=== PATIENT | male | born 1960 | race Caucasian/White ===

== ENCOUNTER → 2019-03-03 | Day surgery (SDC) | payer OTHER ==
[~2019-03-03] MED LIST: ALBU2.5V8 IH; AMLO10TA8 PO; ATOR40TA59 PO; CLOP75TA PO; DULO30CA2 PO; IV RINGERS,LACTATED 1000ML 1,000 ML IV SCH; LEVO100C PO; LIDOCAINE 2% PF 5 ML VIAL. ONE; MIRT30TA PO; MONT10TA49 PO; OMEP40CA45 PO; PARO40TA61 PO; PROPOFOL 20 ML IV ONE; TAMS0.4C97 PO; ZIPR40CA2 PO
[2019-03-03 08:44] VITALS: BP 141/63
--- NOTE | 2019-03-03 10:14 | CONS ---
DATE OF CONSULTATION: 03/03/2019 REASON FOR CONSULTATION: Dysphagia and GERD. HISTORY OF PRESENT ILLNESS: A 58-year-old male with past medical history significant for hypertension, hyperlipidemia, hypothyroidism, and asthma, is seen with recurrent problems with swallowing as meats and solids mainly stick in the substernal location. Risk factors for reflux are positive for caffeine, but negative for alcohol and/or nicotine. He has been on Prilosec 40 mg daily with modest improvement in his symptoms. There has been no change in weight. Prior endoscopy in [place], [place], was unrevealing for malignancy at that time approximately 3 years ago. With continued issues, he requests additional evaluation. PAST MEDICAL HISTORY: Hyperlipidemia, hypertension, GERD, and hypothyroidism. ALLERGIES: SULFA. MEDICATIONS: Include ProAir, amlodipine, atorvastatin, Plavix, Cymbalta, levothyroxine, Remeron, Singulair, omeprazole, Paxil, Flomax, and Geodon. PAST SURGICAL HISTORY: Status post arm surgery, status post gallbladder. FAMILY HISTORY: Noncontributory. REVIEW OF SYSTEMS: HEENT: There is no decrease in visual acuity issues. CARDIAC: History of hypertension. PULMONARY: History of asthma. RENAL: No dysuria, frequency, or hematuria. MUSCULOSKELETAL: History of osteoarthrosis. GASTROINTESTINAL: See history of present illness. HEMATOLOGIC: No bleeding, bruising, or coagulopathy. ENDOCRINE: History of hypothyroidism and hyperlipidemia. DERMATOLOGIC: No skin rashes or pruritus. PHYSICAL EXAMINATION: GENERAL: Reveals a well-nourished, well-developed male who is alert, cooperative, in no acute distress. VITAL SIGNS: Temperature 97.1, pulse 67, and respirations 20. HEENT: Normocephalic, atraumatic head. Pupils and extraocular muscles are not tested. Sclerae anicteric. NECK: Supple. LUNGS: Clear. CARDIOVASCULAR: Reveals an S1, S2 without S3, S4 or appreciable murmur. ABDOMEN: Reveals a soft abdomen, normal bowel sounds, without appreciable hepatosplenomegaly with right upper quadrant cholecystectomy incision. EXTREMITIES: Reveals no cyanosis, clubbing or edema. IMPRESSION: Dysphagia with gastroesophageal reflux disease. Differential includes Klein's, achalasia, malignancy, peptic stricture with gastroesophageal reflux disease and Steff-Garcia; therefore, recommend upper endoscopy with possible biopsy and dilatation. Risks and benefits were discussed with the patient including risk of hemorrhage and perforation and he is willing to proceed. ANAMIKA MARIO MD DR: Gisell JOB#: [id number] / [id number] ecc ,
--- NOTE | 2019-03-06 15:07 | PATHOLOGY ---
[facility] Accession Number: [id number] . 01 Material submitted: . esophagus - DISTAL ESOPHAGEAL BIOPSY. Modifiers: distal . 01 Clinical history: . Dysphagia, GERD, reflux rule out Klein's. . 02 Diagnosis: Esophageal biopsy, distal esophagus: - Esophagitis with eosinophils. See comment. (JPM:mm; 03/06/2019) [facility] 03/06/2019 1422 Local . 02 Comment: Sections of the distal esophageal biopsy reveal segments of tangentially oriented hyperplastic squamous esophageal mucosa. There are focal intraepithelial eosinophils. The differential diagnosis of esophagitis with eosinophils includes reflux esophagitis, "pill esophagitis", and eosinophilic esophagitis. Most areas show only a few intraepithelial eosinophils consistent with reflux esophagitis. Focally, however, there are up to 20-30 intraepithelial eosinophils per high power field. This finding is suggestive of eosinophilic esophagitis. There is no evidence of Klein's change, dysplasia, or malignancy. . (JPM:mml; 03/06/2019) . 02 Electronically signed: . Sabino Best MD, Pathologist NPI- [id number] . 01 Gross description: . Received in formalin labeled "Triston, Orvie, distal esophageal BX rule out Klein's" is a 1.6 x 0.3 x 0.1 cm aggregate of cordoba-brown mucosa fragments. The specimen is submitted in A1. ([facility]; 03/05/2019) [facility] 03/05/2019 1115 Local . 02 Pathologist provided ICD-10: K20.9 . 02 CPT . 329747 Specimen Comment: A courtesy copy of this report has been sent to [phone], [phone] Specimen Comment: [id number] Specimen Comment: Report sent to / DR GAYTAN Performed at: 01 [facility] [address], [place], [place] [id number] MD Jovani Sommers MD Phone: [phone] Performed at: 02 [facility] [address], [place] [id number] MD Sabino Best MD Phone: [phone]
== END ==
LOC: ENDOS 07:24 → EEVIPCON 08:30
PROVIDERS: ATTEND Internal Medicine Gastroenterology
DX: K21.0 Gastro-esophageal reflux disease with esophagitis (principal); K22.2 Esophageal obstruction; I10 Essential (primary) hypertension; E78.5 Hyperlipidemia, unspecified; E03.9 Hypothyroidism, unspecified; J45.909 Unspecified asthma, uncomplicated; Z88.1 Allergy status to other antibiotic agents; I25.2 Old myocardial infarction; J43.9 Emphysema, unspecified; Z90.49 Acquired absence of other specified parts of digestive tract; Z87.39 Personal history of other diseases of the musculoskeletal system and connective tissue
CPT/HCPCS: 43239; 43450; 88305; J2001; J2704